=== PATIENT | female | born 1960 | race Two or more races ===

== ENCOUNTER 2023-10-05 07:29 | Day surgery (SDC) | payer MEDICARE, OTHER ==
[2023-10-05] MEDS ORDERED: HYDROCODONE/APAP 5/325MG TABLET ONE (11:24)
[2023-10-05] MEDS ORDERED: BUPIVACAINE 0.5 % PF 150 MG/30 ML VIAL ONE (11:42)
[2023-10-05] MEDS ORDERED: LIDOCAINE 1% INJ 50 ML MDV IJ ONE (11:42)
[2023-10-05] MEDS ORDERED: CELLULOSE,OXIDIZED 1 EACH EACH MC ONE (11:43)
[2023-10-05] MEDS ORDERED: GELATIN SPONGE,ABSORBABLE 1 EA SPONGE TP ONE (11:47)
[2023-10-05] MEDS ORDERED: HYDROCODONE/APAP 5/325MG TABLET PO PRN (13:30)
== END 2023-10-05 12:36 | disposition home or self-care (01) ==
LOC: DS 07:29
PROVIDERS: ATTEND Surgery Vascular Surgery
DX: E11.22 Type 2 diabetes mellitus with diabetic chronic kidney disease (principal); I12.0 Hypertensive chronic kidney disease with stage 5 chronic kidney disease or end stage renal disease; N18.6 End stage renal disease; E78.5 Hyperlipidemia, unspecified; D64.9 Anemia, unspecified; Z98.890 Other specified postprocedural states; Z79.899 Other long term (current) drug therapy
CPT/HCPCS: 36818; 36415; 84132; 82962; J0690; J3490 ×3; J2704; J1644 ×2; A6209

== ENCOUNTER 2023-10-14 21:50 | Inpatient (IN) | payer MEDICARE, OTHER ==
[~2023-10-14] VITALS: Ht 147.3 cm; Wt 59.0 kg
[2023-10-14] MEDS: IV NS 0.9% 500 ML BAG IV ONE (23:45)
[2023-10-14] MEDS: VANCOMYCIN 1 GM in IV D5W 250 ML IV ONE (23:45)
[2023-10-14 23:49] LABS: BASOPHILS # (AUTO) 0.1 K/uL (0.0-0.2); BASOPHILS % (AUTO) 1.2 % (0.0-2.0); EOSINOPHILS # (AUTO) 0.1 K/uL (0.0-0.7); HEMATOCRIT 37 % (33-45); LYMPHOCYTES # (AUTO) 0.8 K/uL (0.8-4.8); LYMPHOCYTES % (AUTO) 16.1 % (20.0-44.0); MEAN CORPUSCULAR HEMOGLOBIN 32 PG (26.0-33.0); MEAN CORPUSCULAR HGB CONC 33 g/dl (31.0-36.0); MEAN CORPUSCULAR VOLUME 99 fL (82-100); MONOCYTES # (AUTO) 0.4 K/uL (0.1-1.30); NEUTROPHILS # (AUTO) 3.8 K/uL (1.8-8.9); NEUTROPHILS % (AUTO) 72.7 % (43.0-81.0); PLATELET COUNT (AUTO) 233 K/uL (150-450); RED BLOOD CELL COUNT(AUTO) 3.69 MIL/uL (4.0-5.2); RED CELL DISTRIBUTION WIDTH 15.9 % (11.5-15.0); WHITE BLOOD COUNT (AUTO) 5.2 K/uL (4.3-11.0)
[2023-10-14] MEDS ORDERED: VANCOMYCIN 1 GM /D5W 250 ML PB IV ONE (23:51)
[2023-10-14 23:58] LABS: CALCIUM, SERUM 9.1 mg/dL (8.5-10.1); CARBON DIOXIDE 29 mmol/L (21-32); CHLORIDE 99 mmol/L (98-107); CREATININE 4.7 mg/dL (0.6-1.3); GLUCOSE 148 mg/dL (74-106); POTASSIUM 4.2 mmol/L (3.5-5.1); SODIUM SERUM 137 mmol/L (136-145); UREA NITROGEN, BLOOD 39 mg/dL (7-18)
[2023-10-15] MEDS ORDERED: MAGNESIUM HYDROXIDE 30 ML UDC PO PRN
[2023-10-15] MEDS ORDERED: ASPIRIN 300 MG/SUPP.RECT RC ONE
[2023-10-15] MEDS ORDERED: ZOLPIDEM TARTRATE 5 MG TABLET PO PRN
[2023-10-15] MEDS ORDERED: HYDROCODONE/APAP 5/325MG TABLET PO PRN
[2023-10-15] MEDS ORDERED: MAG HYDROX/AL HYDROX/SIMETH 30 ML UDC PO PRN
[2023-10-15] MEDS ORDERED: Z GUARD REMEDY 4 OZ OINT TP PRN
[2023-10-15 00:01] LABS: INR 1.08 (0.91-1.10); PARTIAL THROMBOPLASTIN TIME 28.8 SEC (24.3-34.3); PROTHROMBIN TIME 11.4 SECS (9.2-11.1)
[2023-10-15 00:04] LABS: ALANINE AMINOTRANSFERASE < 6 U/L (12-78); ALBUMIN 3.9 g/dL (3.4-5.0); ALKALINE PHOSPHATASE 118 U/L (46-116); ASPARTATE AMINOTRANSFERASE 10 U/L (15-37); BILIRUBIN,DIRECT 0.1 mg/dL (0.0-0.2); BILIRUBIN,TOTAL 0.5 mg/dL (0.2-1.0); TOTAL PROTEIN, SERUM 8.5 g/dL (6.4-8.2)
[2023-10-15 00:07] LABS: LACTIC ACID 0.9 mmol/L (0.4-2.0)
[2023-10-15] MEDS: ASPIRIN 325 MG TABLET PO ONE (00:39)
[2023-10-15] MEDS ORDERED: ASPIRIN 325 MG TABLET ONE (00:39)
[2023-10-15] MEDS: hydrALAZINE HCL 25 MG TABLET PO SCH (02:09)
[2023-10-15 03:00] VITALS: BP 187/77; TEMP 98.1; O2SAT 99
[2023-10-15 03:28] VITALS: BP 187/77; TEMP 98.1; O2SAT 99
[2023-10-15 04:24] VITALS: BP 168/67; TEMP 97.9; O2SAT 97
[2023-10-15] MEDS ORDERED: NIFE-34 PO (04:41)
[2023-10-15] MEDS ORDERED: CARV25TA PO (04:46)
[2023-10-15] MEDS ORDERED: LOSA50TA3 PO (04:46)
[2023-10-15] MEDS ORDERED: ATOR10TA PO (04:46)
[2023-10-15] MEDS ORDERED: SEVE800T8 PO (04:49)
[2023-10-15] MEDS ORDERED: VANCOMYCIN POST DIALYSIS 500MG IV PRN (07:30)
[2023-10-15 08:30] VITALS: BP 175/70; TEMP 98.4; O2SAT 98
[2023-10-15] MEDS ORDERED: NIFE60TA73 PO (09:33)
[2023-10-15] MEDS ORDERED: CHOL200059 PO (09:34)
[2023-10-15 10:39] LABS: BASOPHILS # (AUTO) 0.1 K/uL (0.0-0.2); BASOPHILS % (AUTO) 1.5 % (0.0-2.0); EOSINOPHILS # (AUTO) 0.2 K/uL (0.0-0.7); EOSINOPHILS % (AUTO) 3.2 % (0.0-6.0); HEMATOCRIT 32 % (33-45); HEMOGLOBIN 10.6 g/dL (11.5-14.8); LYMPHOCYTES # (AUTO) 1.1 K/uL (0.8-4.8); LYMPHOCYTES % (AUTO) 22.4 % (20.0-44.0); MEAN CORPUSCULAR HEMOGLOBIN 33 PG (26.0-33.0); MEAN CORPUSCULAR HGB CONC 33 g/dl (31.0-36.0); MEAN CORPUSCULAR VOLUME 99 fL (82-100); MONOCYTES # (AUTO) 0.5 K/uL (0.1-1.30); NEUTROPHILS % (AUTO) 61.9 % (43.0-81.0); PLATELET COUNT (AUTO) 197 K/uL (150-450); RED BLOOD CELL COUNT(AUTO) 3.23 MIL/uL (4.0-5.2); RED CELL DISTRIBUTION WIDTH 15.6 % (11.5-15.0); WHITE BLOOD COUNT (AUTO) 4.8 K/uL (4.3-11.0)
[2023-10-15] MEDS: PANTOPRAZOLE 40 MG TABLET.DR PO SCH (10:43)
[2023-10-15 10:44] LABS: CALCIUM, SERUM 8.5 mg/dL (8.5-10.1); CREATININE 5.3 mg/dL (0.6-1.3); MAGNESIUM 2.3 mg/dL (1.8-2.4); POTASSIUM 3.9 mmol/L (3.5-5.1)
[2023-10-15] MEDS ORDERED: ATORVASTATIN 10 MG TABLET PO SCH (11:00)
[2023-10-15] MEDS: LOSARTAN POTASSIUM 50 MG TABLET PO SCH (12:07)
[2023-10-15] MEDS: PIPERACILLIN /TAZOBACTAM 2.25 G in IV D5W 50 ML IV SCH (13:57)
[2023-10-15] MEDS: SEVELAMER CARBONATE 800 MG TABLET PO SCH (13:57)
[2023-10-15 16:00] VITALS: BP 180/67; TEMP 98.6; O2SAT 98
[2023-10-15] MEDS: CARVEDILOL 12.5 MG TABLET PO SCH (17:32)
[2023-10-15] MEDS: ATORVASTATIN 10 MG TABLET PO SCH (17:33)
[2023-10-15 20:00] VITALS: BP 189/62; TEMP 99; O2SAT 97
[2023-10-15] MEDS: hydrALAZINE HCL 25 MG TABLET PO PRN (20:50)
[2023-10-16] VITALS: BP 165/90; TEMP 99; O2SAT 96
[2023-10-16 04:00] VITALS: BP 180/80; TEMP 98.4; O2SAT 95
[2023-10-16 07:00] VITALS: BP 195/73; TEMP 97.7; O2SAT 90
[2023-10-16] MEDS: CHOLECALCIFEROL 1,000 UNIT TABLET (VIT D3) PO SCH (08:49)
[2023-10-16] MEDS: NIFEdipine XL (30MG) 30 MG TAB PO SCH (08:50)
[2023-10-16] MEDS: ONDANSETRON HCL/PF 4 MG/2 ML VIAL IVP PRN (09:09)
[2023-10-16 14:34] LABS: HIV-1 p24 ANTIGEN NON REACTIVE (NONREACTIVE); HIV-1/2 ANTIBODY NON REACTIVE (NONREACTIVE)
[2023-10-16 16:00] VITALS: BP 195/78; TEMP 99; O2SAT 94
[2023-10-16 20:51] VITALS: BP 175/72; TEMP 98.8; O2SAT 93
[2023-10-17 00:25] VITALS: BP 154/69; TEMP 98.8; O2SAT 94
[2023-10-17 04:40] VITALS: BP 149/61; TEMP 98.8; O2SAT 93
[2023-10-17 08:00] VITALS: BP 162/72; TEMP 98.2; O2SAT 96
[2023-10-17 09:35] LABS: CALCIUM, SERUM 8.7 mg/dL (8.5-10.1); POTASSIUM 4.6 mmol/L (3.5-5.1)
[2023-10-17 09:41] LABS: CREATININE 9.3 mg/dL (0.6-1.3)
[2023-10-17 16:00] VITALS: BP 156/64; TEMP 98.7; O2SAT 94
[2023-10-17 20:00] VITALS: BP 156/74; TEMP 97.9; O2SAT 97
[2023-10-18 07:15] LABS: CALCIUM, SERUM 8.5 mg/dL (8.5-10.1); CREATININE 6.3 mg/dL (0.6-1.3); POTASSIUM 5.2 mmol/L (3.5-5.1)
[2023-10-18 08:00] VITALS: BP 165/113; TEMP 97.7; O2SAT 96
[2023-10-18 16:00] VITALS: BP 137/63; TEMP 98.4; O2SAT 96
[2023-10-18] MEDS: ACETAMINOPHEN 325 MG TABLET PO PRN (20:22)
[2023-10-18 20:50] VITALS: BP 147/70; TEMP 99.1; O2SAT 99
[2023-10-19 07:23] LABS: CALCIUM, SERUM 8.6 mg/dL (8.5-10.1); MAGNESIUM 2.8 mg/dL (1.8-2.4); PHOSPHORUS 4.1 mg/dL (2.5-4.9); POTASSIUM 5.3 mmol/L (3.5-5.1)
[2023-10-19 07:27] LABS: CREATININE 8.1 mg/dL (0.6-1.3)
[2023-10-19 07:30] VITALS: BP 165/77; TEMP 98.4; O2SAT 95
[2023-10-19 11:28] LABS: BASOPHILS # (AUTO) 0.1 K/uL (0.0-0.2); BASOPHILS % (AUTO) 1.1 % (0.0-2.0); EOSINOPHILS # (AUTO) 0.2 K/uL (0.0-0.7); EOSINOPHILS % (AUTO) 2.7 % (0.0-6.0); HEMATOCRIT 29 % (33-45); HEMOGLOBIN 9.7 g/dL (11.5-14.8); LYMPHOCYTES # (AUTO) 0.9 K/uL (0.8-4.8); LYMPHOCYTES % (AUTO) 12.4 % (20.0-44.0); MEAN CORPUSCULAR HEMOGLOBIN 33 PG (26.0-33.0); MEAN CORPUSCULAR HGB CONC 34 g/dl (31.0-36.0); MEAN CORPUSCULAR VOLUME 100 fL (82-100); MONOCYTES # (AUTO) 0.8 K/uL (0.1-1.30); MONOCYTES % (AUTO) 10.5 % (2.0-12.0); NEUTROPHILS # (AUTO) 5.3 K/uL (1.8-8.9); NEUTROPHILS % (AUTO) 73.3 % (43.0-81.0); PLATELET COUNT (AUTO) 155 K/uL (150-450); RED BLOOD CELL COUNT(AUTO) 2.91 MIL/uL (4.0-5.2); RED CELL DISTRIBUTION WIDTH 16.5 % (11.5-15.0); WHITE BLOOD COUNT (AUTO) 7.3 K/uL (4.3-11.0)
[2023-10-19 20:00] VITALS: BP 160/77; TEMP 98.4; O2SAT 98
[2023-10-19] MEDS: VANCOMYCIN 1 GM in IV D5W 250ml IV ONE (23:22)
[2023-10-20] MEDS ORDERED: VANCOMYCIN POST DIALYSIS 500MG IV PRN (06:00)
[2023-10-20 06:52] LABS: BASOPHILS # (AUTO) 0.1 K/uL (0.0-0.2); BASOPHILS % (AUTO) 1.5 % (0.0-2.0); EOSINOPHILS # (AUTO) 0.1 K/uL (0.0-0.7); EOSINOPHILS % (AUTO) 1.4 % (0.0-6.0); HEMATOCRIT 29 % (33-45); HEMOGLOBIN 9.8 g/dL (11.5-14.8); LYMPHOCYTES # (AUTO) 0.2 K/uL (0.8-4.8); LYMPHOCYTES % (AUTO) 2.9 % (20.0-44.0); MEAN CORPUSCULAR HEMOGLOBIN 34 PG (26.0-33.0); MEAN CORPUSCULAR HGB CONC 34 g/dl (31.0-36.0); MEAN CORPUSCULAR VOLUME 99 fL (82-100); MONOCYTES # (AUTO) 0.5 K/uL (0.1-1.30); MONOCYTES % (AUTO) 8.5 % (2.0-12.0); NEUTROPHILS # (AUTO) 5.5 K/uL (1.8-8.9); NEUTROPHILS % (AUTO) 85.7 % (43.0-81.0); PLATELET COUNT (AUTO) 129 K/uL (150-450); RED CELL DISTRIBUTION WIDTH 16.3 % (11.5-15.0); WHITE BLOOD COUNT (AUTO) 6.4 K/uL (4.3-11.0)
[2023-10-20 07:27] LABS: CALCIUM, SERUM 8.7 mg/dL (8.5-10.1); CREATININE 7.1 mg/dL (0.6-1.3); MAGNESIUM 2.5 mg/dL (1.8-2.4); PHOSPHORUS 4.3 mg/dL (2.5-4.9); POTASSIUM 4.7 mmol/L (3.5-5.1)
[2023-10-20 07:30] VITALS: BP 173/67; TEMP 99.1; O2SAT 95
[2023-10-20 20:00] VITALS: BP 146/57; TEMP 99.1; O2SAT 95
[2023-10-21 05:53] LABS: BASOPHILS # (AUTO) 0.1 K/uL (0.0-0.2); BASOPHILS % (AUTO) 2.5 % (0.0-2.0); EOSINOPHILS # (AUTO) 0.2 K/uL (0.0-0.7); EOSINOPHILS % (AUTO) 4.3 % (0.0-6.0); HEMATOCRIT 28 % (33-45); HEMOGLOBIN 9.4 g/dL (11.5-14.8); LYMPHOCYTES # (AUTO) 0.4 K/uL (0.8-4.8); LYMPHOCYTES % (AUTO) 9.1 % (20.0-44.0); MEAN CORPUSCULAR HEMOGLOBIN 33 PG (26.0-33.0); MEAN CORPUSCULAR HGB CONC 34 g/dl (31.0-36.0); MEAN CORPUSCULAR VOLUME 99 fL (82-100); MONOCYTES # (AUTO) 0.6 K/uL (0.1-1.30); MONOCYTES % (AUTO) 15.5 % (2.0-12.0); NEUTROPHILS # (AUTO) 2.7 K/uL (1.8-8.9); NEUTROPHILS % (AUTO) 68.6 % (43.0-81.0); PLATELET COUNT (AUTO) 116 K/uL (150-450); RED BLOOD CELL COUNT(AUTO) 2.82 MIL/uL (4.0-5.2)
[2023-10-21 06:02] LABS: CALCIUM, SERUM 8.4 mg/dL (8.5-10.1); MAGNESIUM 2.6 mg/dL (1.8-2.4); PHOSPHORUS 5.5 mg/dL (2.5-4.9); POTASSIUM 4.7 mmol/L (3.5-5.1)
[2023-10-21 07:30] VITALS: BP 178/70; TEMP 98.2; O2SAT 97
[2023-10-21 08:10] LABS: HEPATITIS B CORE AB, IgM Negative (Negative); HEPATITIS B CORE AB, TOTAL Negative (Negative); HEPATITIS B SURFACE AB Reactive (.)
[2023-10-21] MEDS: hydrALAZINE HCL IV 20 MG VIAL IV PRN (14:23)
[2023-10-21] MEDS ORDERED: VANC500F2 IV (14:56)
[2023-10-21] MEDS ORDERED: CEFT2VIA6 IJ (14:56)
[2023-10-21 16:00] VITALS: BP 146/55; TEMP 98.1; O2SAT 96
[2023-10-21 16:59] VITALS: BP 146/55
== END 2023-10-21 19:20 | disposition home or self-care (01) | DRG 280 ==
LOC: ER 22:08 → TELE 10-15 01:18 → MED 10-17 21:55
PROVIDERS: ADMIT Student in an Organized Health Care Education/Training Program; ATTEND Nurse Practitioner Acute Care
PROC: 5A1D70Z Performance of Urinary Filtration, Intermittent, Less than 6 Hours Per Day (ICD-10-PCS; 2023-10-17)
PROC: 0J9H0ZZ Drainage of Left Lower Arm Subcutaneous Tissue and Fascia, Open Approach (ICD-10-PCS; principal; 2023-10-19)
DX: T82.7XXA Infection and inflammatory reaction due to other cardiac and vascular devices, implants and grafts, initial encounter (principal); N18.6 End stage renal disease; I21.A1 Myocardial infarction type 2; I12.0 Hypertensive chronic kidney disease with stage 5 chronic kidney disease or end stage renal disease; L02.414 Cutaneous abscess of left upper limb; L03.114 Cellulitis of left upper limb; E87.1 Hypo-osmolality and hyponatremia; E87.20 Acidosis, unspecified; Y83.2 Surgical operation with anastomosis, bypass or graft as the cause of abnormal reaction of the patient, or of later complication, without mention of misadventure at the time of the procedure; Z99.2 Dependence on renal dialysis; E11.22 Type 2 diabetes mellitus with diabetic chronic kidney disease; D63.1 Anemia in chronic kidney disease; E78.5 Hyperlipidemia, unspecified; N25.0 Renal osteodystrophy; Z79.899 Other long term (current) drug therapy; E87.5 Hyperkalemia
CPT/HCPCS: 36415; 71045-TC; 80048-TC; 80076-TC; 80202-TC; 82962-TC; 83605-TC; 83735-TC; 84100-TC; 84484-TC; 85025-TC; 85730-TC; 86704; 86705; 86706; 86803; 87040-TC; 87081-TC; 87086-TC; 87806; 90935-TC; A4223; A6253; A6403; A6407; G0378; J0360; J0690; J2405; J2543; J2704; J3370; J3490; J7030; J7040; J7050; J7060

== ENCOUNTER 2023-10-22 10:30 | Inpatient (IN) | payer MEDICARE, OTHER ==
[~2023-10-22] VITALS: Ht 147.3 cm; Wt 59.0 kg
[~2023-10-22 10:30] MED LIST: ATOR10TA PO; CARV25TA PO; CEFT2VIA6 IJ; CHOL200059 PO; LOSA50TA3 PO; NIFE60TA73 PO; SEVE800T8 PO; VANC500F2 IV
[2023-10-22 12:13] LABS: BASOPHILS # (AUTO) 0.1 K/uL (0.0-0.2); BASOPHILS % (AUTO) 1.9 % (0.0-2.0); EOSINOPHILS # (AUTO) 0.2 K/uL (0.0-0.7); HEMATOCRIT 32 % (33-45); HEMOGLOBIN 10.8 g/dL (11.5-14.8); LYMPHOCYTES # (AUTO) 0.6 K/uL (0.8-4.8); LYMPHOCYTES % (AUTO) 14.1 % (20.0-44.0); MEAN CORPUSCULAR HEMOGLOBIN 33 PG (26.0-33.0); MEAN CORPUSCULAR HGB CONC 34 g/dl (31.0-36.0); MEAN CORPUSCULAR VOLUME 99 fL (82-100); MONOCYTES # (AUTO) 0.5 K/uL (0.1-1.30); MONOCYTES % (AUTO) 11.8 % (2.0-12.0); NEUTROPHILS # (AUTO) 2.9 K/uL (1.8-8.9); NEUTROPHILS % (AUTO) 68.2 % (43.0-81.0); PLATELET COUNT (AUTO) 125 K/uL (150-450); RED BLOOD CELL COUNT(AUTO) 3.26 MIL/uL (4.0-5.2); RED CELL DISTRIBUTION WIDTH 15.5 % (11.5-15.0); WHITE BLOOD COUNT (AUTO) 4.3 K/uL (4.3-11.0)
[2023-10-22 12:26] LABS: INR 1.1 (0.91-1.10); PROTHROMBIN TIME 11.6 SECS (9.2-11.1)
[2023-10-22 12:27] LABS: ALBUMIN 3.4 g/dL (3.4-5.0); ALKALINE PHOSPHATASE 89 U/L (46-116); ASPARTATE AMINOTRANSFERASE 13 U/L (15-37); BILIRUBIN,DIRECT 0.1 mg/dL (0.0-0.2); BILIRUBIN,TOTAL 0.5 mg/dL (0.2-1.0); CALCIUM, SERUM 8.7 mg/dL (8.5-10.1); CARBON DIOXIDE 22 mmol/L (21-32); CHLORIDE 96 mmol/L (98-107); CREATININE 7.3 mg/dL (0.6-1.3); GLUCOSE 145 mg/dL (74-106); SODIUM SERUM 132 mmol/L (136-145); TOTAL PROTEIN, SERUM 7.6 g/dL (6.4-8.2); UREA NITROGEN, BLOOD 36 mg/dL (7-18)
[2023-10-22 12:29] LABS: ALANINE AMINOTRANSFERASE < 6 U/L (12-78)
[2023-10-22] MEDS ORDERED: MAG HYDROX/AL HYDROX/SIMETH 30 ML UDC PO PRN (14:00)
[2023-10-22] MEDS ORDERED: ONDANSETRON HCL/PF 4 MG/2 ML VIAL IVP PRN (14:00)
[2023-10-22] MEDS ORDERED: Z GUARD REMEDY 4 OZ OINT TP PRN (14:00)
[2023-10-22] MEDS ORDERED: ACETAMINOPHEN 325 MG TABLET PO PRN (14:00)
[2023-10-22] MEDS ORDERED: MAGNESIUM HYDROXIDE 30 ML UDC PO PRN (14:00)
[2023-10-22] MEDS: SEVELAMER CARBONATE 800 MG TABLET PO SCH (14:27)
[2023-10-22 16:02] VITALS: BP 143/70; TEMP 97.6; O2SAT 98
[2023-10-22] MEDS: CEFTAZIDIME 1 G in IV D5W 50 ML IV SCH (16:18)
[2023-10-22] MEDS: LOSARTAN POTASSIUM 50 MG TABLET PO SCH (16:20)
[2023-10-22] MEDS: CARVEDILOL 12.5 MG TABLET PO SCH (16:21)
[2023-10-22 20:00] VITALS: BP 141/70; TEMP 98.6; O2SAT 95
[2023-10-23 07:23] LABS: BASOPHILS # (AUTO) 0.1 K/uL (0.0-0.2); EOSINOPHILS # (AUTO) 0.2 K/uL (0.0-0.7); EOSINOPHILS % (AUTO) 3.1 % (0.0-6.0); HEMATOCRIT 28 % (33-45); HEMOGLOBIN 9.1 g/dL (11.5-14.8); LYMPHOCYTES # (AUTO) 0.9 K/uL (0.8-4.8); LYMPHOCYTES % (AUTO) 16.1 % (20.0-44.0); MEAN CORPUSCULAR HEMOGLOBIN 33 PG (26.0-33.0); MEAN CORPUSCULAR HGB CONC 33 g/dl (31.0-36.0); MEAN CORPUSCULAR VOLUME 99 fL (82-100); MONOCYTES # (AUTO) 0.9 K/uL (0.1-1.30); MONOCYTES % (AUTO) 17.2 % (2.0-12.0); NEUTROPHILS # (AUTO) 3.3 K/uL (1.8-8.9); NEUTROPHILS % (AUTO) 61.6 % (43.0-81.0); PLATELET COUNT (AUTO) 115 K/uL (150-450); RED BLOOD CELL COUNT(AUTO) 2.79 MIL/uL (4.0-5.2); RED CELL DISTRIBUTION WIDTH 15.5 % (11.5-15.0); WHITE BLOOD COUNT (AUTO) 5.3 K/uL (4.3-11.0)
[2023-10-23 07:45] LABS: CALCIUM, SERUM 7.9 mg/dL (8.5-10.1); MAGNESIUM 2.4 mg/dL (1.8-2.4); PHOSPHORUS 5.4 mg/dL (2.5-4.9); POTASSIUM 4.4 mmol/L (3.5-5.1)
[2023-10-23 07:58] LABS: CREATININE 8.6 mg/dL (0.6-1.3)
[2023-10-23] MEDS: NIFEDIPINE XL 60 MG TAB.ER.24 PO SCH (08:32)
[2023-10-23] MEDS ORDERED: CLONIDINE HCL 0.1 MG TABLET PO PRN (10:00)
[2023-10-23 16:00] VITALS: BP 155/71; TEMP 98.2; O2SAT 96
[2023-10-23 20:00] VITALS: BP 150/70; TEMP 98.8; O2SAT 96
[2023-10-24 07:16] LABS: BASOPHILS # (AUTO) 0.1 K/uL (0.0-0.2); EOSINOPHILS # (AUTO) 0.1 K/uL (0.0-0.7); EOSINOPHILS % (AUTO) 2.7 % (0.0-6.0); HEMATOCRIT 28 % (33-45); HEMOGLOBIN 9.2 g/dL (11.5-14.8); LYMPHOCYTES # (AUTO) 1.1 K/uL (0.8-4.8); LYMPHOCYTES % (AUTO) 22.8 % (20.0-44.0); MEAN CORPUSCULAR HEMOGLOBIN 33 PG (26.0-33.0); MEAN CORPUSCULAR HGB CONC 33 g/dl (31.0-36.0); MEAN CORPUSCULAR VOLUME 100 fL (82-100); MONOCYTES # (AUTO) 0.7 K/uL (0.1-1.30); MONOCYTES % (AUTO) 15.1 % (2.0-12.0); NEUTROPHILS # (AUTO) 2.8 K/uL (1.8-8.9); NEUTROPHILS % (AUTO) 57.4 % (43.0-81.0); PLATELET COUNT (AUTO) 110 K/uL (150-450); RED BLOOD CELL COUNT(AUTO) 2.77 MIL/uL (4.0-5.2); RED CELL DISTRIBUTION WIDTH 15.5 % (11.5-15.0); WHITE BLOOD COUNT (AUTO) 4.8 K/uL (4.3-11.0)
[2023-10-24 08:00] VITALS: BP 167/69; TEMP 98.2; O2SAT 97
[2023-10-24 10:04] LABS: CALCIUM, SERUM 8.1 mg/dL (8.5-10.1); POTASSIUM 4.8 mmol/L (3.5-5.1)
[2023-10-24 10:06] LABS: CREATININE 10.7 mg/dL (0.6-1.3)
[2023-10-24 16:00] VITALS: BP 172/78; TEMP 98.8; O2SAT 98
[2023-10-24 20:00] VITALS: BP 173/83; TEMP 98.8; O2SAT 97
[2023-10-24 21:30] VITALS: BP 156/72; TEMP 98.8; O2SAT 97
[2023-10-24] MEDS: VANCOMYCIN POST DIALYSIS 500MG IV PRN (22:50)
[2023-10-25 06:44] LABS: BASOPHILS # (AUTO) 0.1 K/uL (0.0-0.2); BASOPHILS % (AUTO) 2.2 % (0.0-2.0); EOSINOPHILS # (AUTO) 0.1 K/uL (0.0-0.7); EOSINOPHILS % (AUTO) 3.5 % (0.0-6.0); HEMATOCRIT 29 % (33-45); LYMPHOCYTES % (AUTO) 24.7 % (20.0-44.0); MEAN CORPUSCULAR HEMOGLOBIN 33 PG (26.0-33.0); MEAN CORPUSCULAR HGB CONC 34 g/dl (31.0-36.0); MEAN CORPUSCULAR VOLUME 98 fL (82-100); MONOCYTES # (AUTO) 0.6 K/uL (0.1-1.30); MONOCYTES % (AUTO) 15.6 % (2.0-12.0); NEUTROPHILS # (AUTO) 2.2 K/uL (1.8-8.9); PLATELET COUNT (AUTO) 115 K/uL (150-450); RED BLOOD CELL COUNT(AUTO) 2.99 MIL/uL (4.0-5.2); RED CELL DISTRIBUTION WIDTH 15.5 % (11.5-15.0); WHITE BLOOD COUNT (AUTO) 4.1 K/uL (4.3-11.0)
[2023-10-25 07:05] LABS: CALCIUM, SERUM 8.5 mg/dL (8.5-10.1); CREATININE 6.5 mg/dL (0.6-1.3); POTASSIUM 3.8 mmol/L (3.5-5.1)
[2023-10-25 09:50] VITALS: BP 185/79; TEMP 98; O2SAT 98
[2023-10-25 12:50] VITALS: BP 167/70; TEMP 98.2; O2SAT 98
[2023-10-25] MEDS: CLONIDINE HCL 0.1 MG TABLET PO PRN (13:00)
[2023-10-25 14:15] VITALS: BP 192/83
[2023-10-25] MEDS: hydrALAZINE HCL 50 MG TABLET PO ONE (14:36)
[2023-10-25 16:00] VITALS: BP 167/74; TEMP 98.6; O2SAT 98
[2023-10-25 17:30] VITALS: BP 167/72; O2SAT 98
== END 2023-10-25 18:06 | disposition home health service (06) | DRG 314 ==
LOC: ER 10:30 → MED 12:15
PROVIDERS: ADMIT Internal Medicine; ATTEND Nurse Practitioner Acute Care
PROC: 5A1D70Z Performance of Urinary Filtration, Intermittent, Less than 6 Hours Per Day (ICD-10-PCS; principal; 2023-10-24)
DX: T82.7XXA Infection and inflammatory reaction due to other cardiac and vascular devices, implants and grafts, initial encounter (principal); N18.6 End stage renal disease; I12.0 Hypertensive chronic kidney disease with stage 5 chronic kidney disease or end stage renal disease; E87.1 Hypo-osmolality and hyponatremia; E11.22 Type 2 diabetes mellitus with diabetic chronic kidney disease; D63.1 Anemia in chronic kidney disease; Y83.2 Surgical operation with anastomosis, bypass or graft as the cause of abnormal reaction of the patient, or of later complication, without mention of misadventure at the time of the procedure; E78.5 Hyperlipidemia, unspecified; Z99.2 Dependence on renal dialysis; Y82.8 Other medical devices associated with adverse incidents; Y92.009 Unspecified place in unspecified non-institutional (private) residence as the place of occurrence of the external cause; N25.0 Renal osteodystrophy
CPT/HCPCS: 36415; 80048-TC; 80076-TC; 80202-TC; 83735-TC; 84100-TC; 85025-TC; 85730-TC; 86850-TC; 87040-TC; 90935-TC; A4223; A6403; A6407; G0378; J0713; J3370; J7050; J7060

== ENCOUNTER 2023-11-30 09:44 | Inpatient (IN) | payer MEDICARE, OTHER ==
[~2023-11-30] VITALS: Ht 147.3 cm; Wt 59.9 kg
[2023-11-30 11:21] LABS: CALCIUM, SERUM 8.7 mg/dL (8.5-10.1); CREATININE 4.9 mg/dL (0.6-1.3); POTASSIUM 3.2 mmol/L (3.5-5.1)
[2023-11-30] MEDS ORDERED: HEPARIN SODIUM, PORCINE 1,000 UNIT/ML VIAL ONE (13:04)
[2023-11-30] MEDS ORDERED: LIDOCAINE HCL/MPF 1% 30 ML VIAL IJ ONE (13:04)
[2023-11-30] MEDS ORDERED: FENTANYL PF 100MCG/2ML AMPUL ONE (13:07)
[2023-11-30] MEDS ORDERED: ROCURONIUM BROMIDE 50 MG/5 ML ONE (13:07)
[2023-11-30] MEDS ORDERED: MIDAZOLAM HCL 2 MG/2ML VIAL ONE (13:07)
[2023-11-30] MEDS ORDERED: FAMOTIDINE/PF INJ 20 MG/2 ML VIAL IV ONE (13:07)
[2023-11-30] MEDS ORDERED: ROPIVACAINE HCL 0.5% 5 MG/ML 30ML VIAL ONE ×2 (13:23→13:58)
[2023-11-30] MEDS ORDERED: CELLULOSE,OXIDIZED 1 EA PACK MC ONE (13:58)
[2023-11-30] MEDS ORDERED: CELLULOSE,OXIDIZED 1 PKT EACH MC ONE (13:58)
[2023-11-30] MEDS ORDERED: CELLULOSE,OXIDIZED 1 EACH EACH MC ONE (13:58)
[2023-11-30] MEDS ORDERED: PROPOFOL 60 ML IV ONE (15:12)
[2023-11-30] MEDS ORDERED: MORPHINE SULFATE INJ 2 MG/ML DISP.SYRIN IV PRN (16:30)
[2023-11-30 20:00] VITALS: BP 174/76; TEMP 98.6; O2SAT 97
[2023-12-01] MEDS: ACETAMINOPHEN ES 500 MG TABLET PO PRN (00:12)
[2023-12-01] MEDS: CARVEDILOL 12.5 MG TABLET PO SCH (01:44)
[2023-12-01] MEDS: ATORVASTATIN 10 MG TABLET PO SCH (01:45)
[2023-12-01] MEDS: LOSARTAN POTASSIUM 50 MG TABLET PO SCH (01:45)
[2023-12-01 08:00] VITALS: BP 199/81; TEMP 99.1; O2SAT 97
[2023-12-01 08:21] VITALS: BP 180/81
== END 2023-12-01 12:13 | disposition home or self-care (01) | DRG 981 ==
LOC: DS 09:44 → MED 16:52
PROVIDERS: ADMIT Internal Medicine; ATTEND Internal Medicine
PROC: 051C0ZY Bypass Left Basilic Vein to Upper Vein, Open Approach (ICD-10-PCS; principal; 2023-11-30)
DX: I12.0 Hypertensive chronic kidney disease with stage 5 chronic kidney disease or end stage renal disease (principal); N18.6 End stage renal disease; Z99.2 Dependence on renal dialysis; E11.22 Type 2 diabetes mellitus with diabetic chronic kidney disease; E78.5 Hyperlipidemia, unspecified
CPT/HCPCS: 36415; 80048-TC; 82962-TC; A4223; A4338; A6209; G0378; J0690; J1100; J1644; J2250; J2405; J2704; J2795; J3010; J3490; J7030

== ENCOUNTER 2023-12-08 21:53 | Inpatient (IN) | payer MEDICARE, OTHER ==
[~2023-12-08] VITALS: Ht 147.3 cm; Wt 59.0 kg
[~2023-12-08 21:53] MED LIST changes: -CEFT2VIA6 IJ; -VANC500F2 IV
[2023-12-08] MEDS ORDERED: PIPERACI/TAZO 3.375GM/D5W 50ML PB IV ONE (22:41)
[2023-12-08] MEDS: PIPERACILLIN /TAZOBACTAM 3.375 G in IV D5W 50 ML IV ONE (23:28)
[2023-12-08 23:51] LABS: CALCIUM, SERUM 8.6 mg/dL (8.5-10.1); CARBON DIOXIDE 31 mmol/L (21-32); CHLORIDE 97 mmol/L (98-107); CREATININE 6.9 mg/dL (0.6-1.3); GLUCOSE 185 mg/dL (74-106); SODIUM SERUM 138 mmol/L (136-145); UREA NITROGEN, BLOOD 56 mg/dL (7-18)
[2023-12-08 23:55] LABS: BASOPHILS # (AUTO) 0.1 K/uL (0.0-0.2); BASOPHILS % (AUTO) 1.4 % (0.0-2.0); EOSINOPHILS # (AUTO) 0.2 K/uL (0.0-0.7); EOSINOPHILS % (AUTO) 3.6 % (0.0-6.0); HEMATOCRIT 30 % (33-45); HEMOGLOBIN 10.3 g/dL (11.5-14.8); LYMPHOCYTES # (AUTO) 0.5 K/uL (0.8-4.8); MEAN CORPUSCULAR HEMOGLOBIN 34 PG (26.0-33.0); MEAN CORPUSCULAR HGB CONC 34 g/dl (31.0-36.0); MEAN CORPUSCULAR VOLUME 101 fL (82-100); MONOCYTES # (AUTO) 0.7 K/uL (0.1-1.30); MONOCYTES % (AUTO) 14.4 % (2.0-12.0); NEUTROPHILS # (AUTO) 3.6 K/uL (1.8-8.9); NEUTROPHILS % (AUTO) 70.6 % (43.0-81.0); PLATELET COUNT (AUTO) 198 K/uL (150-450); RED BLOOD CELL COUNT(AUTO) 3.02 MIL/uL (4.0-5.2); RED CELL DISTRIBUTION WIDTH 14.2 % (11.5-15.0); WHITE BLOOD COUNT (AUTO) 5.2 K/uL (4.3-11.0)
[2023-12-09 00:03] LABS: LACTIC ACID 1.5 mmol/L (0.4-2.0)
[2023-12-09 00:10] LABS: ALANINE AMINOTRANSFERASE < 6 U/L (12-78); ALBUMIN 3.2 g/dL (3.4-5.0); ALKALINE PHOSPHATASE 134 U/L (46-116); ASPARTATE AMINOTRANSFERASE 13 U/L (15-37); BILIRUBIN,TOTAL 0.4 mg/dL (0.2-1.0); TOTAL PROTEIN, SERUM 7.6 g/dL (6.4-8.2)
[2023-12-09] MEDS ORDERED: MAGNESIUM HYDROXIDE 30 ML UDC PO PRN (01:30)
[2023-12-09] MEDS ORDERED: MAG HYDROX/AL HYDROX/SIMETH 30 ML UDC PO PRN (01:30)
[2023-12-09] MEDS ORDERED: ZOLPIDEM TARTRATE 5 MG TABLET PO PRN (01:30)
[2023-12-09] MEDS ORDERED: Z GUARD REMEDY 4 OZ OINT TP PRN (01:30)
[2023-12-09] MEDS ORDERED: ONDANSETRON HCL/PF 4 MG/2 ML VIAL IVP PRN (01:30)
[2023-12-09] MEDS ORDERED: HYDROCODONE/APAP 5/325MG TABLET PO PRN (01:30)
[2023-12-09] MEDS ORDERED: ACETAMINOPHEN 325 MG TABLET PO PRN (01:30)
[2023-12-09 04:00] VITALS: BP 183/75; TEMP 98.6; O2SAT 95
[2023-12-09] MEDS: PANTOPRAZOLE 40 MG TABLET.DR PO SCH (07:42)
[2023-12-09 08:00] VITALS: BP 193/76; TEMP 98.7; O2SAT 97
[2023-12-09] MEDS: PIPERACILLIN /TAZOBACTAM 2.25 G in IV D5W 50 ML IV SCH (08:53)
[2023-12-09] MEDS: HEPARIN SODIUM, PORCINE 5000 UNITS/1 ML VIAL SQ SCH (08:53)
[2023-12-09] MEDS: NIFEdipine XL (30MG) 30 MG TAB PO SCH (09:10)
[2023-12-09] MEDS: LOSARTAN POTASSIUM 50 MG TABLET PO SCH (09:10)
[2023-12-09] MEDS: CARVEDILOL 12.5 MG TABLET PO SCH (09:11)
[2023-12-09 10:33] VITALS: BP 195/76
[2023-12-09] MEDS ORDERED: VANCOMYCIN 1 GM in IV D5W 250ml IV ONE (12:00)
[2023-12-09] MEDS: SEVELAMER CARBONATE 800 MG TABLET PO SCH (12:14)
[2023-12-09 12:30] VITALS: BP 178/73
[2023-12-09 16:00] VITALS: BP 174/55; TEMP 99.4; O2SAT 96
[2023-12-09 20:00] VITALS: BP 159/69; TEMP 98.8; O2SAT 98
[2023-12-10 04:00] VITALS: BP 121/74; TEMP 98.4; O2SAT 99
[2023-12-10 08:00] VITALS: BP 161/70; TEMP 98.3; O2SAT 99
[2023-12-10 08:16] LABS: BASOPHILS # (AUTO) 0.1 K/uL (0.0-0.2); BASOPHILS % (AUTO) 1.7 % (0.0-2.0); EOSINOPHILS # (AUTO) 0.2 K/uL (0.0-0.7); EOSINOPHILS % (AUTO) 4.4 % (0.0-6.0); HEMATOCRIT 30 % (33-45); HEMOGLOBIN 9.9 g/dL (11.5-14.8); LYMPHOCYTES # (AUTO) 0.6 K/uL (0.8-4.8); LYMPHOCYTES % (AUTO) 13.3 % (20.0-44.0); MEAN CORPUSCULAR HEMOGLOBIN 34 PG (26.0-33.0); MEAN CORPUSCULAR HGB CONC 33 g/dl (31.0-36.0); MEAN CORPUSCULAR VOLUME 102 fL (82-100); MONOCYTES # (AUTO) 0.6 K/uL (0.1-1.30); NEUTROPHILS # (AUTO) 3.1 K/uL (1.8-8.9); NEUTROPHILS % (AUTO) 67.6 % (43.0-81.0); PLATELET COUNT (AUTO) 179 K/uL (150-450); RED BLOOD CELL COUNT(AUTO) 2.92 MIL/uL (4.0-5.2); RED CELL DISTRIBUTION WIDTH 14.5 % (11.5-15.0); WHITE BLOOD COUNT (AUTO) 4.6 K/uL (4.3-11.0)
[2023-12-10 08:43] LABS: CALCIUM, SERUM 7.7 mg/dL (8.5-10.1); MAGNESIUM 2.6 mg/dL (1.8-2.4); PHOSPHORUS 4.2 mg/dL (2.5-4.9)
[2023-12-10] MEDS ORDERED: VANCOMYCIN POST DIALYSIS 500MG IV PRN (10:30)
[2023-12-10] MEDS: VANCOMYCIN 1 GM in IV D5W 250ml IV ONE (14:11)
[2023-12-10 16:00] VITALS: BP 162/70; TEMP 98.4; O2SAT 99
[2023-12-10 20:00] VITALS: BP 151/65; TEMP 98; O2SAT 99
[2023-12-11 04:00] VITALS: BP 148/65; TEMP 98; O2SAT 99
[2023-12-11 08:00] VITALS: BP 150/68; TEMP 98.3; O2SAT 96
[2023-12-11 08:16] LABS: CALCIUM, SERUM 7.8 mg/dL (8.5-10.1); CREATININE 6.8 mg/dL (0.6-1.3); POTASSIUM 3.9 mmol/L (3.5-5.1)
[2023-12-11 16:00] VITALS: BP 142/66; TEMP 98.8; O2SAT 98
[2023-12-11 20:00] VITALS: BP 138/61; TEMP 98.9; O2SAT 98
[2023-12-12 04:00] VITALS: BP 138/61; TEMP 98.9; O2SAT 98
[2023-12-12 07:48] LABS: CALCIUM, SERUM 7.5 mg/dL (8.5-10.1); POTASSIUM 4.1 mmol/L (3.5-5.1)
[2023-12-12 07:52] LABS: CREATININE 8.9 mg/dL (0.6-1.3)
[2023-12-12 08:00] VITALS: BP 171/74; TEMP 98.2; O2SAT 98
[2023-12-12 09:46] VITALS: BP 171/74
[2023-12-12] MEDS ORDERED: DOXY-326 PO (11:29)
[2023-12-12] MEDS ORDERED: LEVO250T59 PO (11:29)
== END 2023-12-12 16:11 | disposition home or self-care (01) | DRG 314 ==
LOC: ER 21:58 → MEDSG1 12-09 00:59
PROVIDERS: ADMIT Internal Medicine; ATTEND Nurse Practitioner Acute Care
PROC: 5A1D70Z Performance of Urinary Filtration, Intermittent, Less than 6 Hours Per Day (ICD-10-PCS; principal; 2023-12-09)
DX: T82.7XXA Infection and inflammatory reaction due to other cardiac and vascular devices, implants and grafts, initial encounter (principal); N18.6 End stage renal disease; I12.0 Hypertensive chronic kidney disease with stage 5 chronic kidney disease or end stage renal disease; L03.114 Cellulitis of left upper limb; Y92.009 Unspecified place in unspecified non-institutional (private) residence as the place of occurrence of the external cause; Y83.2 Surgical operation with anastomosis, bypass or graft as the cause of abnormal reaction of the patient, or of later complication, without mention of misadventure at the time of the procedure; Z99.2 Dependence on renal dialysis; I25.10 Atherosclerotic heart disease of native coronary artery without angina pectoris; E78.00 Pure hypercholesterolemia, unspecified; M19.90 Unspecified osteoarthritis, unspecified site; I25.2 Old myocardial infarction; M81.0 Age-related osteoporosis without current pathological fracture; M85.80 Other specified disorders of bone density and structure, unspecified site; Z79.899 Other long term (current) drug therapy; D63.1 Anemia in chronic kidney disease; E11.22 Type 2 diabetes mellitus with diabetic chronic kidney disease
CPT/HCPCS: 36415; 80048-TC; 80053-TC; 80202-TC; 83605-TC; 83735-TC; 84100-TC; 85025-TC; 87040-TC; 87081-TC; 90935-TC; 93971-TC; A6253; A6403; G0378; J1644; J2543; J3370; J7030; J7060